=== PATIENT | female | born 1990 | race Caucasian/White ===

== ENCOUNTER 2020-06-21 22:41 | Emergency (ER) | payer OTHER ==
[~2020-06-21 22:41] MED LIST: ZITHROMAX250 MG PO
[2020-06-22] MEDS ORDERED: NAPROSYN500 MG PO (02:12)
== END 2020-06-22 02:58 | disposition home or self-care (01) ==
LOC: ER1 22:41
DX: S90.211A Contusion of right great toe with damage to nail, initial encounter (principal); E11.9 Type 2 diabetes mellitus without complications; Z23 Encounter for immunization; W23.0XXA Caught, crushed, jammed, or pinched between moving objects, initial encounter; Y92.009 Unspecified place in unspecified non-institutional (private) residence as the place of occurrence of the external cause
CPT/HCPCS: 73660; 90471; 90715; 96372; 99283; J1885

== ENCOUNTER 2021-08-07 17:40 | Emergency (ER) | payer OTHER ==
[~2021-08-07 17:40] MED LIST changes: +NAPROSYN500 MG PO
[2021-08-07 19:32] LABS: HEMOGLOBIN 13.4 gm/dl (12.3-15.3); RED BLOOD COUNT 5.48 M/UL (4.00-5.10); WHITE BLOOD COUNT 6.1 K/UL (4.5-11.0)
[2021-08-07 19:55] LABS: BUN/CREATININE RATIO 16 (0-10)
== END 2021-08-07 20:43 | disposition home or self-care (01) ==
LOC: ER1 17:40
PROVIDERS: Family Medicine
DX: U07.1 COVID-19 (principal); M54.6 Pain in thoracic spine; E11.9 Type 2 diabetes mellitus without complications; I10 Essential (primary) hypertension; Z88.0 Allergy status to penicillin
CPT/HCPCS: 71045; 80053; 82550; 82553; 84484; 85025; 85379; 93005; 99285

== ENCOUNTER → 2021-12-04 | Outpatient (CLI) | payer OTHER | LOC: HEART CORB 10:59 | DX: R07.2 Precordial pain (principal); R73.03 Prediabetes; R06.02 Shortness of breath; I10 Essential (primary) hypertension | CPT/HCPCS: 93306 ==